=== PATIENT | male | born 1950 | race Caucasian/White ===

== ENCOUNTER → 2016-10-19 | Outpatient (CLI) | payer MEDICARE ==
--- NOTE | 2016-10-20 13:49 | P.ARTDOP ---
Arterial Doppler LOWER EXTREMITY ARTERIAL DOPPLER: DATE OF SERVICE: 10/19/2016 Reason for study: Foot numbness. Doppler waveforms: Multiphasic bilaterally throughout. Pulse volume recording: Normal configuration. Pressure gradients: None. Ankle-brachial indices: Greater than 1 bilaterally. Toe pressures: [] on the right, [] on the left Impression: Normal study.
== END ==
LOC: RADUSWWP 12:18
PROVIDERS: ATTEND Family Medicine
DX: R20.0 Anesthesia of skin (principal)
CPT/HCPCS: 93923

== ENCOUNTER 2017-06-10 12:15 | Emergency (ER) | payer MEDICARE ==
[2017-06-10] MEDS ORDERED: SODIUM CHLORIDE 0.9% 1,000 ML IV STA (12:38)
--- NOTE | 2017-06-10 12:47 | ED ---
General Adult HPI - General Chief complaint: Abdominal Pain Stated complaint: Abd Pain Time Seen by Provider: 06/10/17 12:29 Source: patient, RN notes reviewed Mode of arrival: wheelchair Limitations: no limitations - History of Present Illness Initial comments: patient 66-year-old male who presents emergency room today with a chief complaint of right-sided flank pain that began approximately an hour before arrival. Patient does admit that he is expressing a pressure-like pain located in the right flank. States started in the back restaurant the front. States slightly better at this time currently rating it a 5/10. States on his way here was much more intense. Patient admits to feeling nauseated with the pain. Patient does admit to a history of chronic back pain since this does feel different. He does admit that he has some chronic pain that radiates into the right leg this again is not more severe. Patient denies any other complaints. Patient denies any recent fever, chills, shortness of breath, chest pain, numbness or tingling, dysuria or hematuria, constipation or diarrhea, headaches or visual changes, or any other complaints. - Related Data Home Medications Medication Instructions Recorded Confirmed Diazepam [Valium] 10 mg PO HS PRN 06/10/17 06/10/17 Ibuprofen [Motrin] 800 mg PO Q8H PRN 06/10/17 06/10/17 oxyCODONE-APAP 10-325MG [Percocet 1 tab PO Q4H PRN 06/10/17 06/10/17 10-325 mg] Previous Rx's Medication Instructions Recorded Tamsulosin [Flomax] 0.4 mg PO DAILY #10 cap 06/10/17 Allergies Allergy/AdvReac Type Severity Reaction Status Date / Time No Known Allergies Allergy Verified 06/10/17 12:46 Review of Systems ROS Statement: Those systems with pertinent positive or pertinent negative responses have been documented in the HPI. ROS Other: All systems not noted in ROS Statement are negative. Past Medical History Additional Past Medical History / Comment(s): chronic back pain, knee pain History of Any Multi-Drug Resistant Organisms: None Reported Past Surgical History: Orthopedic Surgery Additional Past Surgical History / Comment(s): knee Past Psychological History: No Psychological Hx Reported Smoking Status: Former smoker Past Alcohol Use History: None Reported Past Drug Use History: None Reported General Exam - General Exam Comments Initial Comments: General: The patient is awake and alert, in no distress, and does not appear acutely ill. Eye: Pupils are equal, round and reactive to light, extra-ocular movements are intact. No nystagmus. There is normal conjunctiva bilaterally. No signs of icterus. Ears, nose, mouth and throat: There are moist mucous membranes and no oral lesions. Neck: The neck is supple, there is no tenderness or JVD. Cardiovascular: There is a regular rate and rhythm. No murmur, rub or gallop is appreciated. Respiratory: Lungs are clear to auscultation, respirations are non-labored, breath sounds are equal. No wheezes, stridor, rales, or rhonchi. Gastrointestinal: normal appearance. Normal bowel sounds. Abdomen soft on palpation. Mild tenderness right lower quadrant. Tender in the right CVA. No guarding. Musculoskeletal: Normal ROM, no tenderness. Strength 5/5. Sensation intact. Pulses equal bilaterally 2+. Neurological: A&O x 3. CN II-XII intact, There are no obvious motor or sensory deficits. Coordination appears grossly intact. Speech is normal. Skin: Skin is warm and dry and no rashes or lesions are noted. Psychiatric: Cooperative, appropriate mood & affect, normal judgment. Limitations: no limitations Course Vital Signs 06/10/17 06/10/17 06/10/17 12:21 12:58 15:05 Temperature 97.9 F Pulse Rate 78 77 74 Respiratory 18 16 16 Rate Blood Pressure 189/103 172/96 145/76 O2 Sat by Pulse 97 96 96 Oximetry Medical Decision Making - Medical Decision Making Patient's labs were reviewed and it shows small amount of blood in his urinalysis. There is no sign of infection. Patient's been resting comfortably here in the emergency room. Patient's CT reviewed does show 3 mm stone in the right UVJ. Moderate hydronephrosis. Results for possible calcification possible blockage of the common bile duct seen on CT. Ultrasound was performed showing no evidence of stones or any dilation of common bile duct. At this time patient's resting comfortably will be discharged home advised follow-up the family doctor and neurology as needed. Patient does have pain medication at home. He'll be given a prescription for Flomax. - Lab Data Result diagrams: 06/10/17 12:50 06/10/17 12:50 Lab Results 06/10/17 06/10/17 06/10/17 Range/Units 12:50 12:50 12:50 WBC 9.4 (3.8-10.6) k/uL RBC 4.81 (4.30-5.90) m/uL Hgb 14.8 (13.0-17.5) gm/dL Hct 45.3 (39.0-53.0) % MCV 94.1 (80.0-100.0) fL MCH 30.7 (25.0-35.0) pg MCHC 32.6 (31.0-37.0) g/dL RDW 13.2 (11.5-15.5) % Plt Count 226 (150-450) k/uL Neutrophils % 77 % Lymphocytes % 15 % Monocytes % 5 % Eosinophils % 1 % Basophils % 1 % Neutrophils # 7.2 (1.3-7.7) k/uL Lymphocytes # 1.4 (1.0-4.8) k/uL Monocytes # 0.5 (0-1.0) k/uL Eosinophils # 0.1 (0-0.7) k/uL Basophils # 0.0 (0-0.2) k/uL PT 10.3 (9.0-12.0) sec INR 1.0 (<1.2) APTT 23.3 (22.0-30.0) sec Sodium 139 (137-145) mmol/L Potassium 4.3 (3.5-5.1) mmol/L Chloride 102 (98-107) mmol/L Carbon Dioxide 28 (22-30) mmol/L Anion Gap 9 mmol/L BUN 17 (9-20) mg/dL Creatinine 1.00 (0.66-1.25) mg/dL Est GFR (MDRD) Af Amer >60 (>60 ml/min/1.73 sqM) Est GFR (MDRD) Non-Af >60 (>60 ml/min/1.73 sqM) Glucose 107 H (74-99) mg/dL Calcium 9.6 (8.4-10.2) mg/dL Total Bilirubin 0.3 (0.2-1.3) mg/dL AST 21 (17-59) U/L ALT 41 (21-72) U/L Alkaline Phosphatase 69 (38-126) U/L Total Protein 6.4 (6.3-8.2) g/dL Albumin 3.8 (3.5-5.0) g/dL Amylase 34 (30-110) U/L Lipase 18 L (23-300) U/L Urine Color Urine Appearance (Clear) Urine pH (5.0-8.0) Ur Specific [place] (1.001-1.035) Urine Protein (Negative) Urine Glucose (UA) (Negative) Urine Ketones (Negative) Urine Blood (Negative) Urine Nitrite (Negative) Urine Bilirubin (Negative) Urine Urobilinogen (<2.0) mg/dL Ur Leukocyte Esterase (Negative) Urine RBC (0-5) /hpf Urine WBC (0-5) /hpf Urine Mucus (None) /hpf 06/10/17 Range/Units 12:55 WBC (3.8-10.6) k/uL RBC (4.30-5.90) m/uL Hgb (13.0-17.5) gm/dL Hct (39.0-53.0) % MCV (80.0-100.0) fL MCH (25.0-35.0) pg MCHC (31.0-37.0) g/dL RDW (11.5-15.5) % Plt Count (150-450) k/uL Neutrophils % % Lymphocytes % % Monocytes % % Eosinophils % % Basophils % % Neutrophils # (1.3-7.7) k/uL Lymphocytes # (1.0-4.8) k/uL Monocytes # (0-1.0) k/uL Eosinophils # (0-0.7) k/uL Basophils # (0-0.2) k/uL PT (9.0-12.0) sec INR (<1.2) APTT (22.0-30.0) sec Sodium (137-145) mmol/L Potassium (3.5-5.1) mmol/L Chloride (98-107) mmol/L Carbon Dioxide (22-30) mmol/L Anion Gap mmol/L BUN (9-20) mg/dL Creatinine (0.66-1.25) mg/dL Est GFR (MDRD) Af Amer (>60 ml/min/1.73 sqM) Est GFR (MDRD) Non-Af (>60 ml/min/1.73 sqM) Glucose (74-99) mg/dL Calcium (8.4-10.2) mg/dL Total Bilirubin (0.2-1.3) mg/dL AST (17-59) U/L ALT (21-72) U/L Alkaline Phosphatase (38-126) U/L Total Protein (6.3-8.2) g/dL Albumin (3.5-5.0) g/dL Amylase (30-110) U/L Lipase (23-300) U/L Urine Color Yellow Urine Appearance Clear (Clear) Urine pH 6.0 (5.0-8.0) Ur Specific [place] 1.015 (1.001-1.035) Urine Protein Negative (Negative) Urine Glucose (UA) Negative (Negative) Urine Ketones Negative (Negative) Urine Blood Moderate H (Negative) Urine Nitrite Negative (Negative) Urine Bilirubin Negative (Negative) Urine Urobilinogen <2.0 (<2.0) mg/dL Ur Leukocyte Esterase Negative (Negative) Urine RBC 50 H (0-5) /hpf Urine WBC 3 (0-5) /hpf Urine Mucus Rare H (None) /hpf Disposition Clinical Impression: Kidney stone on right side Disposition: HOME SELF-CARE Condition: Good Instructions: Kidney Stones (ED) Additional Instructions: Please use medication as discussed. Please follow-up with urologist/family doctor in the next 2 days of symptoms have not improved. Please return to emergency room if the symptoms increase or worsen or for any other concerns. Prescriptions: Tamsulosin [Flomax] 0.4 mg PO DAILY #10 cap Referrals: Da Espana DO [Primary Care Provider] - 1-2 days Kurtis Neal MD [STAFF PHYSICIAN] - 1-2 days Time of Disposition: 16:29
[2017-06-10 13:08] LABS: Basophils % (A) 1 %; CH 30.6; CHCM 32.7; Eosinophils # (A) 0.1 k/uL (0-0.7); Eosinophils % (A) 1 %; HCT 45.3 % (39.0-53.0); HDW 2.11; HGB 14.8 gm/dL (13.0-17.5); Luc # (Auto) 0.09; Luc % (Auto) 1; Lymphocytes # (A) 1.4 k/uL (1.0-4.8); Lymphocytes % (A) 15 %; MCH 30.7 pg (25.0-35.0); MCHC 32.6 g/dL (31.0-37.0); MCV 94.1 fL (80.0-100.0); Mean Platelet Volume 8.8; Monocytes # (A) 0.5 k/uL (0-1.0); Monocytes % (A) 5 %; Neutrophils # (A) 7.2 k/uL (1.3-7.7); Neutrophils % (A) 77 %; RBC 4.81 m/uL (4.30-5.90); RDW 13.2 % (11.5-15.5); WBC 9.4 k/uL (3.8-10.6); WBC (Perox) 9.56
--- NOTE | 2017-06-10 13:09 | XR ---
EXAMINATION TYPE: XR KUB DATE OF EXAM: 06/10/2017 COMPARISON: NONE HISTORY: Pain TECHNIQUE: Single supine KUB image of the abdomen is obtained FINDINGS: Small bowel demonstrates no evidence for dilatation or air fluid levels. Gas and fecal material is seen in non-distended colon. No convincing evidence for pneumoperitoneum. No unusual calcifications. The lung bases are clear. The osseous structures are intact. IMPRESSION: 1. Overall nonobstructive bowel gas pattern.
[2017-06-10 13:11] LABS: Appearance,Urine Clear (Clear); Bilirubin,Urine Negative (Negative); Glucose,Urine (UA) Negative (Negative); Ketones,Urine Negative (Negative); Leukocyte Esterase,Urine Negative (Negative); Mucus,Urine Rare /hpf; Nitrite,Urine Negative (Negative); Particle Count 2220; Protein,Urine Negative (Negative); RBC,Urine 50 /hpf (0-5); Specific Gravity,Urine 1.015 (1.001-1.035); UA Billing (MACRO vs. MICRO) MICRO; Urobilinogen,Urine <2.0 mg/dL (<2.0); WBC,Urine 3 /hpf (0-5)
[2017-06-10 13:17] LABS: ALT 41 U/L (21-72); AST 21 U/L (17-59); Alkaline Phosphatase 69 U/L (38-126); Amylase 34 U/L (30-110); Anion Gap 9 mmol/L; Blood Urea Nitrogen 17 mg/dL (9-20); Calcium 9.6 mg/dL (8.4-10.2); Carbon Dioxide 28 mmol/L (22-30); Chloride 102 mmol/L (98-107); Glucose 107 mg/dL (74-99); Non-African American GFR(MDRD) >60 (>60 ml/min/1.73 sqM); Potassium 4.3 mmol/L (3.5-5.1); Sodium 139 mmol/L (137-145); Total Bilirubin 0.3 mg/dL (0.2-1.3); Total Protein 6.4 g/dL (6.3-8.2)
[2017-06-10 13:36] LABS: Prothrombin Time 10.3 sec (9.0-12.0)
[2017-06-10 13:37] LABS: Partial Thromboplastin Time 23.3 sec (22.0-30.0)
--- NOTE | 2017-06-10 14:30 | CT ---
EXAMINATION TYPE: CT abdomen pelvis wo con DATE OF EXAM: 06/10/2017 COMPARISON: NONE HISTORY: Right side abdominal pain. CT DLP: 512.7 mGycm Automated exposure control for dose reduction was used. TECHNIQUE: Helical acquisition of images was performed from the lung bases through the pelvis. FINDINGS: LUNG BASES: Subsegmental atelectasis at both lung bases.. LIVER/GB: Gallbladder is distended measuring 10 cm correlate for gallbladder hydrops. Could not exclu de a small stone within the common bile duct measuring 2 mm. PANCREAS: No significant abnormality is seen. SPLEEN: Accessory spleen incidentally noted.. ADRENALS: No significant abnormality is seen. KIDNEYS: There are approximately 3 less than 5 mm calcifications within each kidney. Indeterminate le marge involving the right kidney measuring 1.5 cm measures approximately 7 Hounsfield units suggestive of cyst. Mild right hydronephrosis secondary to 2 mm right UPJ calcification. ADENOPATHY: None visualized. OSSEOUS STRUCTURES: Hypertrophic and degenerative change of the spine. BOWEL: Bowel gas pattern nonspecific with changes of diverticulosis involving the sigmoid colon.. OTHER: Atherosclerotic change of the aorta. No evidence of aneurysm. IMPRESSION: 1. Bilateral nephrolithiasis with mild to moderate right hydronephrosis secondary to 3 mm right UPJ c alcification. 2. Gallbladder hydrops measuring 10 cm. Tiny calcification the region of the pancreatic head potentia lly could be within the common bile duct. Correlate clinically.
[2017-06-10] MEDS ORDERED: HYDROmorphone 2 MG/ML 1 ML SYRINGE IVP STA (15:09)
--- NOTE | 2017-06-10 16:15 | US ---
EXAMINATION TYPE: US abdomen limited DATE OF EXAM: 06/10/2017 COMPARISON: CLINICAL HISTORY: Pain. RUQ pain. NPO. No hx of surgeries. EXAM MEASUREMENTS: Liver Length: 16.0 cm Gallbladder Wall: 0.2 cm CHD: 0.5 cm Right Kidney: 11.8 x 5.2 x 6.2 cm Limited exam due to overlying bowel gas Pancreas: Obscured by bowel gas Liver: wnl as visualized. Scanned through ribs due to overlying bowel gas Gallbladder: wnl as visualized. Suboptimal visualization due to overlying bowel gas. No prominent s tones seen. Evidence for sonographic Morton's sign: neg CBD: Obscured by overlying bowel gas CHD: portions seen appear wnl Right Kidney: Mild/moderate hydronephrosis. Medial cystic appearing lesion seen in mid pole = 2.2 x 2.3 x 2.3 cm. IMPRESSION: No evidence of gallstones or dilated ducts. Simple right renal cortical 2 cm cyst. Righ t sided hydronephrosis.
[2017-06-10 16:59] VITALS: BP 178/81; PULSE 64; RESP 97; TEMP 97
== END 2017-06-10 16:59 | disposition home or self-care (01) ==
LOC: EC 12:15
DX: N13.2 Hydronephrosis with renal and ureteral calculous obstruction (principal); Z87.891 Personal history of nicotine dependence
CPT/HCPCS: 36415; 80053; 82150; 83690; 85025; 85610; 85730; 81001; 74000; 76705; 74176; 99284; 96374; 96361; J1170

== ENCOUNTER → 2017-09-21 | Outpatient (CLI) | payer MEDICARE ==
--- NOTE | 2017-09-21 13:51 | MR ---
EXAMINATION TYPE: MR lumbar spine wo con DATE OF EXAM: 09/21/2017 COMPARISON: 02/02/2013 HISTORY: 66-year-old male Radiculopathy, lumbar region TECHNIQUE: Multiplanar, multisequence images of the lumbar spine were acquired. Findings: Mild undulating curvature of the lumbar spine. There is new trace grade 1 retrolisthesis at L3-4. Otherwise, alignment is maintained. The conus medullaris is normal. Mixed edematous Modic type I and chronic sclerotic Modic type III endplate change towards the left L4 -L5 and towards the right at L2-L3. Marked hypertrophic facet arthropathy throughout. Ligamentum flavum thickening at multiple levels. Progression in moderate to severe degenerative disc disease particularly from L2 through L5 levels wi th further disc height loss, disc desiccation, disc bulging, and vacuum phenomenon. At T12-L1, no canal or foraminal stenosis. L1-L2, no canal or foraminal stenosis. At L2-L3, diffuse disc bulge with superimposed right intraforaminal protrusion. Hypertrophic facet ar thropathy and ligamentum flavum thickening is present. Ventral impression on the thecal sac without s ignificant spinal canal stenosis. However, changes result in increased, moderate right neural foramin al stenosis. Minimal inferior foraminal narrowing on the left. At L3-L4, hypertrophic facet arthropathy with ligamentum flavum thickening, bulging disc, and new tra ce grade 1 anterolisthesis. Ventral impression on the thecal sac without significant spinal canal yeimy nosis. There is worsening mild right and similar minimal inferior left neural foraminal narrowing. At L4-L5, hypertrophic facet arthropathy with a diffuse disc bulge, ligamentum flavum thickening, and prominent dorsal epidural fat. Changes result in mild circumferential attenuation of the thecal sac without significant spinal canal stenosis. Similar mild right neuroforaminal stenosis and increased m oderate to severe left neural foraminal stenosis. At L5-S1, hypertrophic facet arthropathy with diffuse disc bulge. Changes result in severe right and moderate left neural foraminal stenosis worsened on both sides. There is associated thickening of th e exiting right L5 nerve root. No spinal canal stenosis. No prevertebral or paravertebral soft tissue abnormality seen. Ectasia of the upper abdominal aorta 2 .9 cm. IMPRESSION: 1. As compared to 2012, there has been progressive moderate to severe degenerative disc disease parti cularly from L2 through L5 levels. There is an undulating curvature of the lumbar spine with associat ed Modic type I and type III endplate change towards the right at L2-L3 and towards the left at L4-L5 . 2. Marked hypertrophic facet arthropathy with ligamentum flavum thickening also progressed. 3. Slightly greater degree of mild thecal sac indentation at multiple levels but no canal compromise. 4. Changes result in worsening severe right neural foraminal stenosis at L5-S1. Associated thickening of the exiting right L5 nerve root suggests nerve root compression. Slight worsening moderate left n euroforaminal stenosis at this level. 5. Slight increased moderate to severe left neuroforaminal stenosis at L4-L5. 6. Slight increased moderate right neuroforaminal stenosis at L2-L3.
== END | disposition home or self-care (01) ==
LOC: RADMRIMAIN 12:55
PROVIDERS: ATTEND Family Medicine
DX: M99.73 Connective tissue and disc stenosis of intervertebral foramina of lumbar region (principal); M51.16 Intervertebral disc disorders with radiculopathy, lumbar region; M43.8X6 Other specified deforming dorsopathies, lumbar region; M46.96 Unspecified inflammatory spondylopathy, lumbar region; M24.28 Disorder of ligament, vertebrae
CPT/HCPCS: 72148

== ENCOUNTER → 2019-01-09 | Outpatient (CLI) | payer MEDICARE, OTHER ==
--- NOTE | 2019-01-09 13:49 | XR ---
EXAMINATION TYPE: XR hand complete LT DATE OF EXAM: 01/09/2019 COMPARISON: NONE HISTORY: Pain TECHNIQUE: Three views are submitted. FINDINGS: The osseous structures are intact. The joint spaces are preserved and there is no acute fracture or dislocation. IMPRESSION: 1. No definite acute fracture or dislocation if symptoms persist, follow-up study in 7 to 10 days wo uld be suggested
== END | disposition home or self-care (01) ==
LOC: RADXRMAIN 13:28
PROVIDERS: ATTEND Family Medicine
DX: M79.642 Pain in left hand (principal)

== ENCOUNTER → 2021-05-05 | Outpatient (CLI) | payer MEDICARE ==
--- NOTE | 2021-05-06 05:46 | MR ---
EXAMINATION TYPE: MR shoulder RT wo con DATE OF EXAM: 05/05/2021 COMPARISON: None HISTORY: Adhesive capsulitis of right shoulder, RT shoulder pain into neck and scapula area Multiplanar multiecho imaging of the right shoulder without contrast. Subscapularis tendon is intact. Biceps tendon is intact. There is small shoulder joint effusion. The glenoid andrés appear intact. There is moderate spurring at the AC joint. There is impingement on the supraspinatus muscle and tend on. There is inferior displacement of the muscle fibers. There are small areas of increased signal in the supraspinatus tendon. There is no retraction. I see no definite full-thickness tear. There is no evidence of a fracture. IMPRESSION: Small intrasubstance tears of the supraspinatus tendon. No definite full-thickness tear. Large hypertrophic spur at the AC joint involving the lateral clavicle with impingement on the supras pinatus muscle and tendon. Mild shoulder joint effusion.
== END | disposition home or self-care (01) ==
LOC: RADMRIMAIN 16:25
PROVIDERS: ATTEND Family Medicine
DX: M75.111 Incomplete rotator cuff tear or rupture of right shoulder, not specified as traumatic (principal); M77.8 Other enthesopathies, not elsewhere classified